=== PATIENT | female | born 1975 | race Caucasian/White ===

== ENCOUNTER 2020-07-20 19:58 | Emergency (ER) | payer BC ==
[~2020-07-20] VITALS: Ht 157.5 cm; Wt 54.0 kg
[2020-07-20] MEDS ORDERED: LIDOcaine 5% patch TP STA (20:57)
[2020-07-20] MEDS ORDERED: orphenadrine citrate 60mg/2ml inj. IM ONE (21:00)
[2020-07-20] MEDS ORDERED: ketorolac tromethamine 15mg/ml inj. IM ONE (21:00)
[2020-07-20] MEDS ORDERED: cyclobenzaprine 10mg tablet PO ONE (21:15)
--- NOTE | 2020-07-20 21:15 | NUR ---
Norflex is unavailable per pharmacy. [facility] notified and 10mg cyclobenzaprine ordered.
[2020-07-20 21:44] VITALS: BP 132/78
--- NOTE | 2020-07-20 21:46 | NUR ---
Patient reports no change in symptoms after medication. [facility] notified.
== END 2020-07-20 23:40 | disposition home or self-care (01) ==
LOC: ER 19:58
DX: M54.2 Cervicalgia (principal); M54.5 Low back pain; R51.9 Headache, unspecified
CPT/HCPCS: 93005; 96372; 99283; J1885